=== PATIENT | female | born 1990 ===

== ENCOUNTER 2017-05-23 23:22 | Emergency (ER) | payer SELFPAY ==
[2017-05-23 23:34] VITALS: RESP 18
--- NOTE | 2017-05-23 23:54 | C.PDOC ---
History Of Present Illness Patient presents to the ER with a complaint of nausea, vomiting, and diarrhea since approximately 04:00 after eating a lot of food the night before. Patient has not been able to tolerate any PO, denies fever or chills. Time Seen by Provider: 05/23/17 23:54 Chief Complaint (Nursing): Abdominal Pain History Per: Patient History/Exam Limitations: no limitations Onset/Duration Of Symptoms: Hrs Current Symptoms Are (Timing): Still Present Context: Food Severity: Mild Pain Scale Rating Of: 4 Location Of Pain/Discomfort: Epigastric Radiation Of Pain To:: None Quality Of Discomfort: Unable To Describe Associated Symptoms: Nausea, Vomiting, Diarrhea. denies: Fever, Chills Exacerbating Factors: None Alleviating Factors: None Recent travel outside of the [place]: No Abnormal Vaginal Bleeding: No Past Medical History Reviewed: Historical Data, Nursing Documentation, Vital Signs Vital Signs: Last Vital Signs Temp 98.3 F 05/23/17 23:27 Pulse 104 H 05/23/17 23:27 Resp 18 05/23/17 23:27 BP 130/84 05/23/17 23:27 Pulse Ox 98 05/24/17 00:03 - Medical History PMH: Migraine Surgical History: Cholecystectomy Family History: States: No Known Family Hx - Social History Hx Alcohol Use: Yes Hx Substance Use: No - Immunization History Hx Tetanus Toxoid Vaccination: No Hx Influenza Vaccination: No Hx Pneumococcal Vaccination: No Review Of Systems Constitutional: Negative for: Fever, Chills Cardiovascular: Negative for: Chest Pain Respiratory: Negative for: Shortness of Breath Gastrointestinal: Positive for: Nausea, Vomiting, Diarrhea Musculoskeletal: Negative for: Back Pain Skin: Negative for: Rash Neurological: Negative for: Weakness Psych: Negative for: Anxiety Physical Exam - Physical Exam Appears: Non-toxic Skin: Warm, Dry Head: Normacephalic Eye(s): bilateral: Normal Inspection Oral Mucosa: Moist Neck: Supple Chest: Symmetrical, No Tenderness Cardiovascular: Rhythm Regular Respiratory: No Rales, No Rhonchi, No Wheezing Gastrointestinal/Abdominal: Soft, Tenderness (Mild mid epigastric), No Guarding , No Rebound Back: Normal Inspection Extremity: Normal ROM Extremity: Bilateral: Atraumatic Neurological/Psych: Oriented x3 Gait: Steady ED Course And Treatment - Laboratory Results Result Diagrams: 05/23/17 23:55 05/23/17 23:55 O2 Sat by Pulse Oximetry: 98 (room air) Pulse Ox Interpretation: Normal Progress Note: Blood work and urinalysis ordered. IV fluids, pepcid, and zofran administered. Disposition Counseled Patient/Family Regarding: Studies Performed, Diagnosis, Need For Followup, Rx Given - Disposition Referrals: [facility] [Outside] [facility] [Outside] Disposition: HOME/ ROUTINE Disposition Time: 23:54 Condition: FAIR Additional Instructions: Please return if symptoms recur Prescriptions: Ondansetron ODT [Zofran ODT] 1 odt PO BID PRN #6 odt PRN Reason: Nausea/Vomiting Instructions: Acute Nausea and Vomiting (ED), Abdominal Pain (ED) Forms: [employer] (Danish) - Clinical Impression Clinical Impression: Abdominal pain, Nausea, Vomiting - Scribe Statement The provider has reviewed the documentation as recorded by the Scribwon Vasquez All medical record entries made by the Scribe were at my direction and personally dictated by me. I have reviewed the chart and agree that the record accurately reflects my personal performance of the history, physical exam, medical decision making, and the department course for this patient. I have also personally directed, reviewed, and agree with the discharge instructions and disposition.
[2017-05-23] MEDS ORDERED: Lactated Ringer's 1,000 ML IV ONE (23:58)
[2017-05-24 00:12] LABS: BASO % 0.6 % (0.0-2.0); EOS # 0.9 K/uL (0.0-0.7); EOS % 15.8 % (0.0-4.0); HEMOGLOBIN 13.2 g/dL (11.0-16.0); LYMPH # 1.3 K/uL (1.0-4.3); LYMPH % 22.3 % (20.0-40.0); MEAN CELL VOLUME 83.9 fL (81.0-99.0); MEAN CORPUSCULAR HEMOGLOBIN 29.2 pg (27.0-31.0); MEAN CORPUSCULAR HGB CONC 34.9 g/dL (33.0-37.0); MEAN PLATELET VOLUME 7.3 fL (7.2-11.7); MONO # 0.5 K/uL (0.0-0.8); MONO % 7.7 % (0.0-10.0); NEUT # 3.2 K/uL (1.8-7.0); NEUT % 53.6 % (50.0-75.0); RBC 4.52 Mil/uL (3.80-5.20); RED CELL DISTRIBUTION WIDTH 13.1 % (11.5-14.5); WHITE BLOOD COUNT 5.9 K/uL (4.8-10.8)
[2017-05-24 00:15] LABS: SQUAMOUS EPITHIAL 1 /hpf (0-5); URINE BACTERIA RARE (<OCC); URINE BILIRUBIN NEGATIVE (NEGATIVE); URINE BLOOD NEGATIVE (NEGATIVE); URINE CLARITY Clear (Clear); URINE COLOR Yellow (YELLOW); URINE GLUCOSE (UA) NORMAL (Normal); URINE LEUKOCYTE ESTERASE NEG Leu/uL (Negative); URINE PROTEIN NEGATIVE (NEGATIVE); URINE UROBILINOGEN NORMAL mg/dL (0.2-1.0)
[2017-05-24 00:20] LABS: HCG,QUALITATIVE URINE NEGATIVE (NEGATIVE)
[2017-05-24] MEDS ORDERED: Lactated Ringer's 1,000 ML ONE (00:21)
[2017-05-24 00:25] LABS: ALB/GLOB RATIO 1.2 (1.0-2.1); ALBUMIN 4.1 g/dL (3.5-5.0); ALT/SGPT 30 U/L (9-52); AST/SGOT 25 U/L (14-36); BLOOD UREA NITROGEN 8 mg/dL (7-17); CALCIUM 8.5 mg/dl (8.6-10.4); GFR AFRICAN-AMERICAN > 60; GFR NON-AFRICAN AMERICAN > 60; LIPASE 72 U/L (23-300)
[2017-05-24 02:06] VITALS: BP 112/75; PULSE 89; TEMP 98; O2SAT 97
== END 2017-05-24 02:06 | disposition home or self-care (01) ==
LOC: C.ER 23:22
DX: R11.2 Nausea with vomiting, unspecified (principal); R10.9 Unspecified abdominal pain
CPT/HCPCS: 80053; 81001; 83690; 84703; 85025; 96374; 96375; 99284; J1885; J2405; J7120

== ENCOUNTER 2017-06-23 19:22 | Emergency (ER) | payer SELFPAY ==
[2017-06-23 19:42] VITALS: BP 124/56; PULSE 111; TEMP 97.5
[2017-06-23] MEDS ORDERED: DiphenhydrAMINE 50 mg/ml Inj IVP STA (19:53)
[2017-06-23] MEDS ORDERED: Sodium Chloride 0.9% 500 ML IV ONE ×2 (19:53→20:05)
[2017-06-23] MEDS ORDERED: MethylPREDNISolone 40 mg Vial IVP STA (19:53)
[2017-06-23] MEDS ORDERED: DiphenhydrAMINE 50 mg/ml Inj ONE (20:05)
[2017-06-23] MEDS ORDERED: MethylPREDNISolone 40 mg Vial ONE (20:05)
[2017-06-23 20:48] VITALS: RESP 16; O2SAT 100
--- NOTE | 2017-06-23 21:37 | C.PDOC ---
History Of Present Illness 27 year old female presents to the ER with a complaint of an intermittent body rash for the past month that has worsened for the past 3 days. Patient states the rash is on her back chest, abdomen, and extremities; she reports it is itchy and notes feeling SOB today. Denies chest pain, difficulty swallowing, tongue swelling, or facial swelling. Time Seen by Provider: 06/23/17 19:46 Chief Complaint (Nursing): Allergic Reaction History Per: Patient History/Exam Limitations: no limitations Onset/Duration Of Symptoms: Days Current Symptoms Are (Timing): Still Present Possible Cause: Unknown Associated Symptoms: Skin Rash, Dyspnea, Itching. denies: Swelling, Trouble Swallowing, Chest Pain Home/EMS Treatment: None Recent travel outside of the [place]: No Past Medical History Reviewed: Historical Data, Nursing Documentation, Vital Signs Vital Signs: Last Vital Signs Temp 97.5 F L 06/23/17 19:38 Pulse 111 H 06/23/17 19:38 Resp 16 06/23/17 20:00 BP 124/56 L 06/23/17 19:38 Pulse Ox 100 06/23/17 21:38 - Medical History PMH: Migraine Surgical History: Cholecystectomy Family History: States: Unknown Family Hx - Social History Hx Alcohol Use: Yes Hx Substance Use: No - Immunization History Hx Tetanus Toxoid Vaccination: No Hx Influenza Vaccination: No Hx Pneumococcal Vaccination: No Review Of Systems Constitutional: Negative for: Fever, Chills ENT: Negative for: Mouth Swelling, Throat Swelling Cardiovascular: Negative for: Chest Pain Respiratory: Positive for: Shortness of Breath Gastrointestinal: Negative for: Nausea, Vomiting Skin: Positive for: Rash. Negative for: Other (Swelling) Physical Exam - Physical Exam Appears: Non-toxic, No Acute Distress Skin: Warm, Dry, Rash (Diffuse urticaria, not involving the face) Head: Atraumatic, Normacephalic, No Swelling Eye(s): bilateral: Normal Inspection Ear(s): Bilateral: Normal Oral Mucosa: Moist Tongue: Normal Appearing, No Lesions Lips: Normal Appearing, No Swelling Throat: Normal, No Erythema, No Other (Swelling) Neck: Normal, Supple Chest: Symmetrical, No Tenderness Cardiovascular: Rhythm Regular Respiratory: Normal Breath Sounds, No Rales, No Rhonchi, No Stridor, No Wheezing Gastrointestinal/Abdominal: Soft, No Tenderness Neurological/Psych: Oriented x3, Normal Speech, Other (No focal deficits) ED Course And Treatment O2 Sat by Pulse Oximetry: 100 (Room air) Pulse Ox Interpretation: Normal Medical Decision Making Medical Decision Making: Plan: * Benadryl * Pepcid * Solumedrol * Zofran * IV fluids Time 2133 Patient re-evaluated and reports feeling better. Her rash has much improved. She has no facial involvement, intraoral swelling, difficulty speaking, or wheezing. Patient is stable for discharge and Rx given. Disposition Counseled Patient/Family Regarding: Diagnosis, Need For Followup, Rx Given - Disposition Referrals: Non [facility] Provider, [Primary Care Provider] - [facility] [Outside] [facility] [Outside] [facility] [Outside] Disposition: HOME/ ROUTINE Disposition Time: 21:35 Condition: IMPROVED Additional Instructions: Take Benadryl 1-2 pills every 4-6 hours as needed for itching and rash Take Prednisone daily for the next 4 days Take Pepcid daily for the next week Return to the emergency department at any time if symptoms persist or worsen. Prescriptions: DiphenhydrAMINE [Benadryl] 25 mg PO Q4 PRN #30 cap PRN Reason: Rash Famotidine [Pepcid] 20 mg PO DAILY #10 tab Prednisone [Deltasone] 2 tab PO DAILY #8 tablet Instructions: Urticaria (GEN) Forms: [facility] (Serbian) - POA Present On Arrival: None - Clinical Impression Clinical Impression: Urticaria - PA / STAFF ACCOUNTANT / Resident Statement MD/DO has reviewed & agrees with the documentation as recorded. - Scribe Statement The provider has reviewed the documentation as recorded by the Scribwon Vasquez All medical record entries made by the Ianibe were at my direction and personally dictated by me. I have reviewed the chart and agree that the record accurately reflects my personal performance of the history, physical exam, medical decision making, and the department course for this patient. I have also personally directed, reviewed, and agree with the discharge instructions and disposition.
== END 2017-06-23 22:00 | disposition home or self-care (01) ==
LOC: SUPCPDRO 19:22 → C.ER 19:22
DX: L50.9 Urticaria, unspecified (principal)
CPT/HCPCS: 96361; 96374; 96375; 99285; J1200; J2405; J2920; J7040

== ENCOUNTER 2017-07-24 09:38 | Emergency (ER) | payer OTHER ==
[2017-07-24 09:45] VITALS: TEMP 98
[2017-07-24] MEDS ORDERED: Sodium Chloride 0.9% 1,000 ML IV ONE (10:00)
[2017-07-24] MEDS ORDERED: DiphenhydrAMINE 50 mg/ml Inj IVP STA (10:01)
--- NOTE | 2017-07-24 10:07 | C.PDOC ---
History Of Present Illness Patient presents to ED c/o diffuse rash, itching, facial swelling, sensation of swelling in throat, and chest pain/SOB since approx 7am when she woke up. She denies known allergens, unusual food intake, fever, cough, runny nose. Time Seen by Provider: 07/24/17 10:00 Chief Complaint (Nursing): Allergic Reaction History Per: Patient History/Exam Limitations: None Onset/Duration Of Symptoms: Hrs Current Symptoms Are (Timing): Still Present Symptoms Have Been: Continuous Severity: Moderate Past Medical History Reviewed: Historical Data, Nursing Documentation, Vital Signs Vital Signs: Last Vital Signs Temp 98 F 07/24/17 09:41 Pulse 120 H 07/24/17 09:41 Resp 22 07/24/17 09:41 BP 136/84 07/24/17 09:41 Pulse Ox 98 07/24/17 10:08 - Medical History PMH: Migraine Surgical History: Cholecystectomy Family History: States: No Known Family Hx - Social History Hx Alcohol Use: Yes Hx Substance Use: No - Immunization History Hx Tetanus Toxoid Vaccination: No Hx Influenza Vaccination: No Hx Pneumococcal Vaccination: No Review Of Systems Except As Marked, All Systems Reviewed And Found Negative. Constitutional: Negative for: Fever, Chills ENT: Positive for: Throat Swelling Cardiovascular: Positive for: Chest Pain Respiratory: Positive for: Shortness of Breath Gastrointestinal: Negative for: Nausea, Vomiting, Abdominal Pain Skin: Positive for: Rash (diffuse urticarial rash) Physical Exam - Physical Exam Appears: Non-toxic, In Acute Distress (in mild distress ) Skin: Other (diffuse urticarial rash on chest, arms, face ) Head: Normacephalic Eye(s): bilateral: Other (mild periorbital swelling ) Nose: Normal Oral Mucosa: Moist Tongue: Normal Appearing Lips: Swelling (mild) Throat: No Erythema, No Exudate, No Drooling Lymphatic: No Adenopathy Cardiovascular: Rhythm Regular (tachycardic ) Respiratory: Normal Breath Sounds, No Accessory Muscle Use, No Rales, No Rhonchi , No Wheezing Neurological/Psych: Oriented x3 ED Course And Treatment - Laboratory Results Result Diagrams: 07/24/17 10:39 07/24/17 10:39 O2 Sat by Pulse Oximetry: 98 (RA) Pulse Ox Interpretation: Normal Progress Note: Blood work, CXR, EKG ordered and reviewed. Patient placed non case monitor, given IV NS bolus, IV solumedrol, IV benadryl and IV pepcid. Disposition Counseled Patient/Family Regarding: Studies Performed, Diagnosis, Need For Followup, Rx Given - Disposition Referrals: [facility] [Outside] Disposition: HOME/ ROUTINE Disposition Time: 12:50 Condition: STABLE Additional Instructions: FOLLOW UP WITH YOUR DOCTOR IN 1-2 DAYS USE MEDICATIONS DIRECTED RETURN TO EMERGENCY ROOM IF SYMPTOMS WORSEN SEGUIMIENTO CON WOOD MDICO EN 1-2 TIPTON USE MEDICAMENTOS SEGN LO INDICADO REGRESE AL MARIANNA DE EMERGENCIA SI LOS SNTOMAS EMPEORAN Prescriptions: DiphenhydrAMINE [Benadryl] 25 mg PO Q6 PRN #20 cap PRN Reason: Itching / Pruritus predniSONE [predniSONE Tab] 40 mg PO DAILY #6 tab Instructions: Hives Forms: [facility] (Jordanian) Print Language: BOLIVIAN - POA Present On Arrival: None - Clinical Impression Clinical Impression: Allergic urticaria
[2017-07-24] MEDS ORDERED: Sodium Chloride 0.9% 1,000 ML ONE (10:10)
[2017-07-24] MEDS ORDERED: DiphenhydrAMINE 50 mg/ml Inj ONE (10:18)
[2017-07-24 10:48] LABS: BASO # 0.1 K/uL (0.0-0.2); BASO % 0.8 % (0.0-2.0); EOS # 0.2 K/uL (0.0-0.7); EOS % 3.4 % (0.0-4.0); HEMOGLOBIN 14.8 g/dL (11.0-16.0); LYMPH # 1.5 K/uL (1.0-4.3); LYMPH % 20.8 % (20.0-40.0); MEAN CELL VOLUME 84.5 fL (81.0-99.0); MEAN CORPUSCULAR HEMOGLOBIN 28.8 pg (27.0-31.0); MEAN CORPUSCULAR HGB CONC 34.1 g/dL (33.0-37.0); MEAN PLATELET VOLUME 7.5 fL (7.2-11.7); MONO # 0.4 K/uL (0.0-0.8); MONO % 5.3 % (0.0-10.0); NEUT % 69.7 % (50.0-75.0); RBC 5.12 Mil/uL (3.80-5.20); RED CELL DISTRIBUTION WIDTH 13.5 % (11.5-14.5); WHITE BLOOD COUNT 7.2 K/uL (4.8-10.8)
[2017-07-24 11:04] LABS: ALB/GLOB RATIO 1.2 (1.0-2.1); ALBUMIN 4.1 g/dL (3.5-5.0); ALT/SGPT 23 U/L (9-52); AST/SGOT 27 U/L (14-36); BLOOD UREA NITROGEN 11 mg/dL (7-17); CALCIUM 9.1 mg/dl (8.6-10.4); GFR AFRICAN-AMERICAN > 60; GFR NON-AFRICAN AMERICAN > 60
[2017-07-24 13:03] VITALS: BP 103/63; PULSE 89; RESP 18; O2SAT 99
--- NOTE | 2017-07-26 13:57 | CARD ---
APPROVED REPORT EKG Measurement Heart [id number] <Conclusion> Sinus rhythm with 1st degree AV block Otherwise normal ECG
== END 2017-07-24 13:06 | disposition home or self-care (01) ==
LOC: C.ER 09:38
DX: L50.0 Allergic urticaria (principal)
CPT/HCPCS: 80053; 85025; 93005; 96361; 96374; 96375; 99284; J1200; J2930; J7040

== ENCOUNTER 2017-12-04 20:28 | Emergency (ER) | payer SELFPAY ==
[2017-12-04 20:46] VITALS: BP 127/84; PULSE 87; RESP 18; TEMP 98; O2SAT 98
--- NOTE | 2017-12-04 21:31 | C.PDOC ---
Time Seen by Provider: 12/04/17 20:52 Chief Complaint (Nursing): Lower Extremity Problem/Injury Past Medical History Vital Signs: Last Vital Signs Temp 98 F 12/04/17 20:43 Pulse 87 12/04/17 20:43 Resp 18 12/04/17 20:43 BP 127/84 12/04/17 20:43 Pulse Ox 98 12/04/17 20:43 - Medical History PMH: Migraine Surgical History: Cholecystectomy Family History: States: Unknown Family Hx - Social History Hx Alcohol Use: Yes Hx Substance Use: No - Immunization History Hx Tetanus Toxoid Vaccination: No Hx Influenza Vaccination: No Hx Pneumococcal Vaccination: No ED Course And Treatment O2 Sat by Pulse Oximetry: 98 Disposition - Disposition Referrals: [facility] [Outside] [facility] [Outside] Disposition: HOME/ ROUTINE Disposition Time: 21:26 Condition: GOOD Additional Instructions: Follow up with the medical doctor within 1-2 days, Return if worsened. Prescriptions: Salicylic Acid [Mediplast Eajh-Xsmelx-Doiy] 1 each TP DAILY #10 adh..patch Instructions: Corns and Calluses - Clinical Impression Clinical Impression: Callus of foot
--- NOTE | 2017-12-04 21:34 | C.PDOC ---
History Of Present Illness 27 year old female presents to the emergency department with complaints of pain in her left great toe. Patient reports that she stepped in glass four months ago and extracted the glass from her toe using a nail clipper. She reports that she was evaluated by a "doctor" who her mother recommended to her but she cannot recall if the doctor was a flight director or a general physician. She reports that the doctor diagnosed her with a callous. Patient reports that she has difficulty wearing shoes for an extended period of time and ambulates with a limp as to not bear weight on her left great toe. Time Seen by Provider: 12/04/17 20:52 Chief Complaint (Nursing): Lower Extremity Problem/Injury History Per: Patient History/Exam Limitations: no limitations Onset/Duration Of Symptoms: Other (four months) Current Symptoms Are (Timing): Worse - Ankle/Foot Description Of Injury: Other (stepped in glass) Currently Unable To: Bear Weight, Other (wear shoes for an extended period of time) Past Medical History Reviewed: Historical Data, Nursing Documentation, Vital Signs Vital Signs: Last Vital Signs Temp 98 F 12/04/17 20:43 Pulse 87 12/04/17 20:43 Resp 18 12/04/17 20:43 BP 127/84 12/04/17 20:43 Pulse Ox 98 12/04/17 21:37 - Medical History PMH: Migraine Surgical History: Cholecystectomy Family History: States: No Known Family Hx - Social History Hx Alcohol Use: Yes Hx Substance Use: No - Immunization History Hx Tetanus Toxoid Vaccination: No Hx Influenza Vaccination: No Hx Pneumococcal Vaccination: No Review Of Systems Skin: Positive for: Other (callous on left great toe) Physical Exam - Physical Exam Appears: Non-toxic, No Acute Distress Skin: Warm, Dry Head: Atraumatic, Normacephalic Eye(s): bilateral: Normal Inspection Nose: Normal Oral Mucosa: Moist Neck: Normal, Supple Extremity: Normal ROM (at the left foot), Tenderness (to the volar aspect of the left great toe), Capillary Refill (< 2 sec), Swelling (to the volar aspect of the left great toe) Extremity: Bilateral: Normal Color And Temperature Pulses: Left Dorsalis Pedis: Normal, Right Dorsalis Pedis: Normal Neurological/Psych: Oriented x3, Normal Motor, Normal Sensation Gait: Steady ED Course And Treatment O2 Sat by Pulse Oximetry: 98 (RA) Pulse Ox Interpretation: Normal - Other Rad XR Foot Left Great Toe X-Ray: Interpreted by Me, Viewed By Me Interpretation: No foreign body visualized. Progress Note: Plan: XR Foot Left Great Toe Disposition - Disposition Referrals: [facility] at [facility] [Outside] [facility] [Outside] Disposition: HOME/ ROUTINE Disposition Time: 21:45 Condition: GOOD Additional Instructions: Follow up with the medical doctor within 1-2 days, Return if worsened. Prescriptions: Salicylic Acid [Mediplast Mwpr-Fnofon-Yzxz] 1 each TP DAILY #10 adh..patch Instructions: Corns and Calluses Forms: [employer] (Vietnamese) - Clinical Impression Clinical Impression: Callus of foot - PA / STOCKKEEPER / Resident Statement MD/DO has reviewed & agrees with the documentation as recorded. - Scribe Statement The provider has reviewed the documentation as recorded by the Scribe All medical record entries made by the Scribe were at my direction and personally dictated by me. I have reviewed the chart and agree that the record accurately reflects my personal performance of the history, physical exam, medical decision making, and the department course for this patient. I have also personally directed, reviewed, and agree with the discharge instructions and disposition.
--- NOTE | 2017-12-05 10:22 | RAD ---
PROCEDURE: Radiographs of the left great toe. TECHNIQUE:: AP radiograph of the left foot, with oblique and lateral view of the left great toe. COMPARISON: None. FINDINGS: BONES: No acute fracture or evidence of osseous injury. JOINTS: Normal. SOFT TISSUES: Soft tissue swelling along the plantar aspect of the distal great toe. OTHER FINDINGS: None. IMPRESSION: Soft tissue swelling along the plantar aspect of the distal great toe. No radiopaque foreign body.
== END 2017-12-04 21:40 | disposition home or self-care (01) ==
LOC: C.ER 20:28
DX: L84 Corns and callosities (principal)